=== PATIENT | female | born 1960 | race Caucasian/White ===

== ENCOUNTER 2023-09-07 20:35 | Emergency (ER) | payer MEDICARE, OTHER, SELFPAY ==
[2023-09-07 20:35] VITALS: BMI 38.9
[2023-09-07 20:42] VITALS: BP 170/146
[2023-09-07 20:58] LABS: % Basophils 0.2 % (0-2); % Eosinophils 1.6 % (0-6); % Immature Granulocytes 0.2 % (0-0.5); % Monocytes 7.4 % (1.7-9.3); % Neutrophils 53.6 % (42.2-75.2); Absolute Eosinophils 0.1 10^3/uL (0-0.7); Absolute Lymphocytes 3.3 10^3/uL (1.2-3.4); Absolute Monocytes 0.7 10^3/uL (0.1-0.6); Absolute Neutrophils 4.8 10^3/uL (1.4-6.5); Hematocrit 40.3 % (37.0-47.0); Hemoglobin 13.5 g/dL (12.0-16.0); Mean Corp Hgb Conc. 33.5 g/dL (33.0-37.0); Mean Corpuscular Hgb 29.5 pg (27.0-31.0); Mean Platelet Volume 9.9 fL (7.4-10.4); Nucleated Red Blood Cells % 0 %; Platelet Count 253 10^3/uL (130-400); Red Blood Cell Count 4.58 10^6/uL (4.20-5.40); Red Cell Dist. Width 13.4 % (11.5-14.5)
[2023-09-07 21:00] LABS: Urine Albumin Negative (Neg - Trace); Urine Bilirubin Negative (Negative); Urine Character Clear (Clear); Urine Color Yellow; Urine Glucose Negative (Negative); Urine Ketone Negative (Negative); Urine Leukocyte Trace (Negative); Urine Nitrite Negative (Negative); Urine Occult Blood Negative (Negative); Urine Urobilinogen Negative (Neg - 1+)
[2023-09-07 21:13] LABS: Urine Bacteria Few (Negative); Urine Red Blood Cell 0-2 /HPF (0-2); Urine White Cell 0-2 /HPF (0-5)
[2023-09-07 21:15] LABS: ALT (SGPT) 16 U/L (0-35); AST (SGOT) 21 U/L (14-36); Albumin 4.6 g/dl (3.5-5.0); Alkaline Phosphatase 62 U/L (38-126); Blood Urea Nitrogen 18 mg/dl (7-17); Calcium 9.8 mg/dl (8.4-10.2); Carbon Dioxide 25 mmol/L (22-30); Chloride 106 mmol/L (98-107); Glucose 99 mg/dl (70-99); Lipase 177 U/L (23-300); Sodium 135 mmol/L (135-145); Total Bilirubin 0.4 mg/dl (0.2-1.3); Total Protein 7.6 g/dl (6.3-8.2); eGFR > 60.00
--- NOTE | 2023-09-07 23:06 | ED.GENMED ---
History of Present Illness
General
Chief Complaint: Abdominal Pain
Source: patient
Exam Limitations: none
Time Seen by Provider: 09/07/23 22:49
Travel History
Have you had any contact with someone who has COVID-19?: No
Do you have any symptoms of coronavirus? Fever > 100 degrees, chills, cough, shortness of breath, sore throat, loss of taste or smell, muscle aches, or headache?: No
History of Present Illness
History of Present Illness:
This is a 62 year old female that comes in with c/o abd pain. States that this started this morning and has been on and off sine then. States that the pain in on the right lower abd. States that she was nauseated and felt a little dizzy. Denies any
fever, chills, chest pain, SOB vomiting, diarrhea, headache, urinary burning.
Past History
Past History
ED Past Medical History: HTN, Hypercholesterolemia and Other (thyroid problem); Negative Hypothyroidism
ED Past Surgical History: None
Social History
Tobacco: Non-smoker
Alcohol: None
Personal:
Living: with family
Review of Systems
Review of Systems
All Other Systems: ROS reviewed and negative except as documented in HPI and ROS
Constitutional: Reports no symptoms; Denies fever or chills
EENT: Reports no symptoms
Respiratory: Reports no symptoms; Denies cough or trouble breathing
Cardiac: Reports no symptoms; Denies chest pain
ABD/GI: Reports abdominal pain and nausea; Denies vomiting or diarrhea
: Reports no symptoms; Denies dysuria, frequency or urgency
Musculoskeletal: Reports no symptoms
Skin: Reports no symptoms
Neurological: Reports dizzy; Denies headache
Psychiatric: Reports no symptoms
Phy Exam
General Physical Exam
General Presentation: well appearing and no apparent distress
General age: appears stated age
General Skin: warm and dry
General Habitus: normal
General Mental: alert
General Hydration: appears well hydrated
ENT Exam
ENT Exam: TM's normal, pharynx normal and neck supple
Eye Exam
Eye Exam: EOMI
Cardiovascular Exam
Cardiovascular Exam: regular rate/rhythm, no edema, no murmur and normal peripheral pulses
Pulmonary Exam
Pulmonary Exam: lungs clear, no respiratory distress, no rales, chest non tender, no crackles, no rhonchi, no wheezing and no cough
Gastrointestinal Exam
Gastrointestinal Exam: normal bowel sounds, soft, no organomegaly, no pulsatile mass, non distended and tender (RLQ tenderness with palpation)
Musculoskeletal Exam
Musculoskeletal Exam: full ROM and no edema
Skin Exam
Skin Exam: normal color, warm/dry, no rash and no petechia
Psychiatric Exam
Psychiatric Exam: normal mood/affect
Course
Orders/Labs/Results
Orders:
Orders
09/07/23 20:45
IV Insert/Care/Rem.- Treatment PRN
09/07/23 20:51
Complete Blood Count/With Diff Urgent
Comprehensive Metabolic Panel Urgent
Lipase Urgent
Urinalysis Reflex To Culture Urgent
Date Specimen was Collected: 09/07/23
Time Specimen was Collected: 20:45
Urine Microscopic Reflex Cult Urgent
09/07/23 23:06
0.9% Sodium Chloride 500 ml [Nss] 500 ml IV BOLUS
09/07/23 23:12
Ondansetron Injectable [Zofran] 4 mg IV NOW STA
09/08/23 00:30
CT Abd/pelvis W Iv Cont Urgent
Reason For Exam: Right lower abd pain
Abnormal Lab Results
09/07/23
20:51
Absolute Monos (auto) 0.7 H 10^3/uL
(0.1-0.6)
BUN 18 H mg/dl
(7-17)
Leukocyte Esterase Rfl Trace A
(Negative)
Urine Bacteria (Reflex) Few A
(Negative)
09/07/23 20:51
09/07/23 20:51
Very slight Dehydration. Urine negative for infection. Lipase normal at 177,
Vital Signs
Initial and Last Documented VS:
Initial Vital Signs
Temp Pulse Resp BP Pulse Ox
98.2 F 79 19 170/146 99
09/07/23 20:42 09/07/23 20:42 09/07/23 20:42 09/07/23 20:42 09/07/23 20:42
Last Documented Vital Signs
Temp Pulse Resp BP Pulse Ox
98.2 F 79 19 143/79 99
09/07/23 20:42 09/07/23 20:42 09/07/23 20:42 09/08/23 01:00 09/08/23 01:00
MDM/Problems Addressed
Differential Diagnosis Includes:
Appendicitis, Ovarian cyst
MDM/Problems Addressed:
This is a 62 year old female that comes in with c/o right lower abd pain. States that this started today and has been on and off. States that she was nauseated and slightly dizzy.
Will check labs and get CT scan.
Back into see patient. Explained that she has degenerative changes in the spine, hips and pelvis. This is most likely causing her pain. Explained that she has bilateral renal cyst and there is a small fat filled hernia. Patient can use Tylenol or
Ibuprofen for pain. Heat or ice to help with any discomfort. Follow up with the family doctor or the risk adjustment specialist for further evaluation if she continued with pain. Return with any concerns.
Chronic conditions affecting care:
NA
Acute Exacerbation and/or Progression of Chronic Illness:
NA
*Radiology
Radiology exam reviewed: radiology read reviewed (CT- No acute intra-abdominal pathology. No findings to suggest etiology for right sided abd pain. Incidental findings. Small bilateral renal cyst. Small fat-containing paraumbilical hernia.
Degenerative changes in the spine, pelvis and hips. )
*Pulse Oximetry
Patient hypoxic: no
*EKG
Interpreted by ED Provider?: NA
Rate: EKG- N/A
*Flight Deck Officer Interpretation
Rate: Flight Deck Officer- N/A
*Critical Care Note
Total Time (30-74mins, 75-104mins- exclusive of procedures): Not Applicable
ED Attending Note
-
Portions of this chart may have been created with voice recognition software.� Occasional wrong word or��sound alike� substitutions may have occurred due to the inherent limitations of voice recognition software.
Discharge Plan
Departure
Patient Disposition: Home (Routine Discharge)
Date of Disposition: 09/08/23
Time of Disposition: 01:41
Patient with high blood pressure during this ER visit?: Yes
Condition: Good
Covid-19: Not Applicable
Discharge Problem:
Abdominal pain
Instructions: Degenerative Disc Disease (DC), Abdominal Pain, BLOOD PRESSURE
Prescriptions:
No Action
lorazepam 0.5 mg Tablet
0.5 mg PO DAILY PRN (Reason: Anxiety)
diltiazem HCl 30 mg Tablet
30 mg PO DAILY
rosuvastatin 10 mg Tablet
10 mg PO DAILY
duloxetine 20 mg Capsule,Delayed Release(Dr/Ec)
20 mg PO BID
dexlansoprazole 60 mg Capsule,Biphase Delayed Releas
60 mg PO DAILY
Referrals:
Derek Malhotra MD [Active] - As needed
Malina Beard MD [Family Provider] - Call in 1-3 days for appt
Activity Restrictions/Additional Instructions:
As discussed, your blood work is normal and your urine is negative for infection. Your CT shows that you have degenerative changes in the spine, pelvis and hips. This is most likely the cause of your right sided abd pain as the nerves from the back
wrap around to the abd. You may use Tylenol or Ibuprofen for pain. Heat or ice to help with the pain. Follow up with the family doctor for recheck. You have also been given the name of a immigration specialist if your pain continues. IF YOU HAVE ANY OTHER
CONCERNS PLEASE RETURN TO THE EMERGENCY ROOM.
Interventions
Interventions:
*Risk Screen - Suicide Last Done: 09/07/23 20:42
*General Assessment Last Done: 09/07/23 20:42
*Neglect/Abuse Screening Last Done: 09/07/23 20:42
ED- Fall Risk Assessment Last Done: 09/07/23 23:30
*ED COVID-19 Vaccine History Last Done: 09/07/23 20:42
LX-Pszlqr-Flzbdhkcfu Assessment Last Done: 09/07/23 23:30
Discharge Date and Time
Print Language: VENEZUELAN
[2023-09-07 23:12] VITALS: BP 149/75
[2023-09-07] MEDS: NSS 500 IV (23:35)
[2023-09-08 01:00] VITALS: BP 143/79
== END 2023-09-08 01:56 | disposition home or self-care (01) ==
LOC: EMR 20:35
PROVIDERS: Emergency Medicine; EMERGENCY PHYSICIAN Student in an Organized Health Care Education/Training Program; FAMILY PHYSICIAN Family Medicine
DX: R10.9 Unspecified abdominal pain (principal); I10 Essential (primary) hypertension; E78.00 Pure hypercholesterolemia, unspecified
CPT/HCPCS: 99284; 74177; 80053; 81003; 81015; 83690; 85025; Q9967

== ENCOUNTER 2024-10-12 11:12 | Emergency (ER) | payer OTHER, SELFPAY ==
[2024-10-12 11:22] VITALS: BP 141/95
[2024-10-12 11:54] LABS: % Basophils 0.2 % (0-2); % Eosinophils 1.3 % (0-6); % Immature Granulocytes 0.2 % (0-0.5); % Lymphocytes 33.4 % (20.5-51.1); % Monocytes 7.1 % (1.7-9.3); % Neutrophils 57.8 % (42.2-75.2); Absolute Eosinophils 0.1 10^3/uL (0-0.7); Absolute Lymphocytes 2.1 10^3/uL (1.2-3.4); Absolute Monocytes 0.5 10^3/uL (0.1-0.6); Absolute Neutrophils 3.7 10^3/uL (1.4-6.5); Hematocrit 42.2 % (37.0-47.0); Hemoglobin 14.2 g/dL (12.0-16.0); Mean Corp Hgb Conc. 33.6 g/dL (33.0-37.0); Mean Corpuscular Hgb 29.6 pg (27.0-31.0); Mean Corpuscular Volume 87.9 fL (81.0-99.0); Mean Platelet Volume 10.5 fL (7.4-10.4); Nucleated Red Blood Cells % 0 %; Platelet Count 268 10^3/uL (130-400); Red Cell Dist. Width 13.3 % (11.5-14.5); White Blood Cell Count 6.4 10^3/uL (4.8-10.8)
[2024-10-12 12:06] LABS: ALT (SGPT) 12 U/L (0-35); AST (SGOT) 17 U/L (14-36); Albumin 4.1 g/dl (3.5-5.0); Alkaline Phosphatase 63 U/L (38-126); Blood Urea Nitrogen 18 mg/dl (7-17); Calcium 10.1 mg/dl (8.4-10.2); Carbon Dioxide 22 mmol/L (22-30); Chloride 112 mmol/L (98-107); Glucose 95 mg/dl (70-99); Potassium 4.1 mmol/L (3.5-5.1); Sodium 142 mmol/L (135-145); Total Bilirubin 0.7 mg/dl (0.2-1.3); Total Protein 7.6 g/dl (6.3-8.2); eGFR > 60.00
[2024-10-12 12:15] LABS: Troponin I < 0.012 ng/ml
--- NOTE | 2024-10-12 14:06 | ED.GENMED ---
Addendum entered and electronically signed by Trisha Faulkner MD 10/12/24 19:55:
Dr. Mejia did a bedside formal consult on patient. Recommended we do a CTA and then feels patient can safely go home with the expectation that the patient will take 81 mg of aspirin daily, continue her rosuvastatin 10 mg daily, as well as start 21
days of Plavix. Patient is comfortable with this plan. Patient understands that she should return with any worsening neurological symptoms such as any numbness, weakness, balance issues, visual changes, difficulty swallowing or speaking.
Original Note:
History of Present Illness
<Trisha Faulkner MD - Last Filed: 10/12/24 15:22>
General
Chief Complaint: Chest Pain
Time Seen by Provider: 10/12/24 13:51
Nursing documentation reviewed up to this point in time: agreed with
<ROMELIA Wolfe - Last Filed: 10/12/24 14:53>
General
Source: patient
History of Present Illness
History of Present Illness:
Pt is a 64 yo F with a PMH of HTN, anxiety, depression, and thyroid disorder who presents to the ED c/o chest pain with radiation down the left arm and dizziness/instability x 3 days. Patient explains that the chest pain is a dull ache at her
xiphoid process, which gets worse with deep inspiration and certain movements. She says that this morning her L hand was numb, but now states that she is feeling the dull ache reach down the L arm without numbness. She admits to recent travel to the
[place] where she did a lot of swimming, but denies trauma otherwise. She says her dizziness started about the same time, she describes it as feeling as though there is something 'rattling around in her head', and she is unstable on her
feet, feeling as though the room is spinning and/or her legs may give out. She says this is worse with movements, including turning her head. She also notes that she has been on Wegovy injections x 1 year, which she typically does every Gregorio. Now,
she is 10 days out from her last injection, which she fears may be playing a role in her symptoms. Her history is notable for removal of a thyroid nodule, monitored with labs q6 months, and a TIA 5 years ago. She denies fever, N/V/D, congestion,
cough, known sick contacts, or other associated symptoms.
Past History
<Trisha Faulkner MD - Last Filed: 10/12/24 15:22>
Past History
ED Past Medical History: HTN, Hypercholesterolemia and Other (thyroid problem); Negative Hypothyroidism
ED Past Surgical History: None
Social History
Tobacco: Non-smoker
Alcohol: None
Personal:
Living: with family
Family History
Family History: Other
Review of Systems
<Trisha Faulkner MD - Last Filed: 10/12/24 15:22>
Review of Systems
Constitutional: Reports no symptoms
EENT: Reports no symptoms
Respiratory: Reports no symptoms
Cardiac: Reports chest pain
ABD/GI: Reports no symptoms
: Reports no symptoms
Musculoskeletal: Reports no symptoms
Skin: Reports no symptoms
Neurological: Reports dizzy, weakness (Patient reports feeling as if her left face is drooped intermittently) and numbness (Numbness in left hand)
Endocrine: Reports no symptoms
Hematologic/Lymphatic: Reports no symptoms
Psychiatric: Reports no symptoms
<ROMELIA Wolfe - Last Filed: 10/12/24 14:53>
Review of Systems
All Other Systems: ROS reviewed and negative except as documented in HPI and ROS
Phy Exam
<Trisha Faulkner MD - Last Filed: 10/12/24 15:22>
Physical Exam
Physical Exam:
Physical Exam
General: no apparent distress, not acutely ill. Well uncomfortable appearing
Neck: supple. no meningeal signs. normal psoterior pharynx
Heart: s1/s2 regular rate and rhythm, no murmur. equal radial pulses.
Lungs: no acute respiratory distress. clear bilaterally
Abdomen: normal bowel sounds. not tender. no CVAT
Neuro: alert and orientedx3. no focal neurological deficits. Face appears symmetric. Cranial nerves equal and symmetric bilaterally. No drift. 5 out of 5 strength in all extremities
Skin: no rash
Psychiatric: well kept. interactive and cooperative
Extremities: no edema. no calf tenderness. negative homans. good distal pulses
<ROMELIA Wolfe - Last Filed: 10/12/24 14:53>
General Physical Exam
General Presentation: well appearing and no apparent distress
General age: appears stated age
General Skin: warm and dry
General Habitus: normal
General Mental: alert
Cardiovascular Exam
Cardiovascular Exam: regular rate/rhythm
Heart Sounds: normal
Pulmonary Exam
Pulmonary Exam: lungs clear and no respiratory distress
Scores
<Trisha Faulkner MD - Last Filed: 10/12/24 15:22>
Heart Score for Chest Pain Patients
Heart Score for Chest Pain Patients: 3
Heart Score Risk: 2.5% MACE over next 6 weeks
<ROMELIA Wolfe - Last Filed: 10/12/24 14:53>
Heart Score for Chest Pain Patients
STEMI patient?: No
History: Slightly or Non-Suspicious
ECG: Normal
Age: >/= 65 years
Risk Factors: 1 or 2 Risk Factors
Troponin: </= Normal Limit
Heart Score for Chest Pain Patients: 3
Heart Score Risk: 2.5% MACE over next 6 weeks
Course
<Trisha Faulkner MD - Last Filed: 10/12/24 15:22>
Orders/Labs/Results
Orders:
Orders
10/12/24
Electrocardiogram (*1) Stat
Reason for Study: Chest Pain
Comment: DONE
10/12/24 11:30
CMP [Comprehensive Metabolic Panel] Urgent
Complete Blood Count/With Diff Urgent
TSH Urgent
Comment: ADD ON
Troponin I Urgent
10/12/24 14:31
CT Head W/o Iv Contrast Urgent
Comment:
Reason For Exam: dizziness
PT Consult [Pt Eval And Treat] Urgent
Activity Level: Out of Bed-Early Mobility
10/12/24 14:33
Add On- LAB Urgent
Tests Added?: TSH
10/12/24 15:06
D-Dimer Urgent
Troponin I Urgent
Abnormal Lab Results
10/12/24
11:30
MPV 10.5 H fL
(7.4-10.4)
Chloride 112 H mmol/L
(98-107)
BUN 18 H mg/dl
(7-17)
10/12/24 11:30
10/12/24 11:30
Vital Signs
Initial and Last Documented VS:
Initial Vital Signs
Temp Pulse Resp BP Pulse Ox
98.4 F 79 18 141/95 100
10/12/24 11:22 10/12/24 11:22 10/12/24 11:22 10/12/24 11:22 10/12/24 11:22
Last Documented Vital Signs
Temp Pulse Resp BP Pulse Ox
98.4 F 64 22 141/95 98
10/12/24 11:22 10/12/24 14:00 10/12/24 14:00 10/12/24 11:22 10/12/24 14:00
<ROMELIA Wolfe - Last Filed: 10/12/24 14:53>
Orders/Labs/Results
Orders:
Orders
10/12/24
Electrocardiogram (*1) Stat
Reason for Study: Chest Pain
Comment: DONE
10/12/24 11:30
CMP [Comprehensive Metabolic Panel] Urgent
Complete Blood Count/With Diff Urgent
TSH Urgent
Comment: ADD ON
Troponin I Urgent
10/12/24 14:31
CT Head W/o Iv Contrast Urgent
Comment:
Reason For Exam: dizziness
PT Consult [Pt Eval And Treat] Urgent
Activity Level: Out of Bed-Early Mobility
10/12/24 14:33
Add On- LAB Urgent
Tests Added?: TSH
10/12/24 15:06
D-Dimer Urgent
Troponin I Urgent
Abnormal Lab Results
10/12/24
11:30
MPV 10.5 H fL
(7.4-10.4)
Chloride 112 H mmol/L
(98-107)
BUN 18 H mg/dl
(7-17)
10/12/24 11:30
10/12/24 11:30
Vital Signs
Initial and Last Documented VS:
Initial Vital Signs
Temp Pulse Resp BP Pulse Ox
98.4 F 79 18 141/95 100
10/12/24 11:22 10/12/24 11:22 10/12/24 11:22 10/12/24 11:22 10/12/24 11:22
Last Documented Vital Signs
Temp Pulse Resp BP Pulse Ox
98.4 F 64 22 141/95 98
10/12/24 11:22 10/12/24 14:00 10/12/24 14:00 10/12/24 11:22 10/12/24 14:00
<Trisha Faulkner MD - Last Filed: 10/12/24 15:22>
MDM/Problems Addressed
Differential Diagnosis Includes:
TIA, acute coronary syndrome, PE
MDM/Problems Addressed:
Patient reports acute dizziness and chest pain, as well as numbness of left hand and possible left facial droop
Chronic conditions affecting care: HTN
Acute Exacerbation and/or Progression of Chronic Illness:
Patient is acutely hypertensive which may be causing her symptoms of left arm numbness and dizziness
Acute Exacerbation and/or Progression of Chronic Illness: HTN
<Trisha Faulkner MD - Last Filed: 10/12/24 15:22>
*Pulse Oximetry
Patient hypoxic: no
*EKG
Interpreted by ED Provider?: Yes
Interpretation: normal
Comparison EKG: no comparison EKG present
Rate: normal
Rhythm: sinus
[place]: normal axis
Interval: normal interval
QRS Pattern: normal QRS
Ischemia: no ischemia
*Grounds/Maintenance Specialist Interpretation
Rate: normal
Interpretation: normal
Rhythm: sinus
<ROMELIA Wolfe - Last Filed: 10/12/24 14:53>
*Critical Care Note
Total Time (30-74mins, 75-104mins- exclusive of procedures): Not Applicable
ED Attending Note
<Trisha Faulkner MD - Last Filed: 10/12/24 15:22>
-
Portions of this chart may have been created with voice recognition software.� Occasional wrong word or��sound alike� substitutions may have occurred due to the inherent limitations of voice recognition software.
Discharge Plan
Departure
Prescriptions:
No Action
lorazepam 0.5 mg Tablet
0.5 mg PO DAILY PRN (Reason: Anxiety)
diltiazem HCl 30 mg Tablet
30 mg PO DAILY
rosuvastatin 10 mg Tablet
10 mg PO DAILY
duloxetine 20 mg Capsule,Delayed Release(Dr/Ec)
20 mg PO BID
dexlansoprazole 60 mg Capsule,Biphase Delayed Releas
60 mg PO DAILY
Interventions
Interventions:
*Risk Screen - Suicide Last Done: 10/12/24 11:22
*General Assessment Last Done: 10/12/24 11:22
*Neglect/Abuse Screening Last Done: 10/12/24 11:22
*ED- Fall Risk Assessment Last Done: 10/12/24 11:22
*ED COVID-19 Vaccine History Last Done: 10/12/24 11:22
ED- Cardiac Assessment Last Done: 10/12/24 13:26
Discharge Date and Time
Print Language: ICELANDIC
[2024-10-12 15:37] LABS: Troponin I < 0.012 ng/ml
[2024-10-12 15:43] LABS: TSH 1.39 uIU/ml (0.47-4.68)
[2024-10-12] MEDS: LOW STRENGTH ASPIRIN 324 MG PO (16:11)
[2024-10-12] MEDS: PLAVIX 300 MG PO (16:12)
[2024-10-12 16:18] LABS: D-Dimer 0.38 ug/mlFEU (0.00-0.50)
[2024-10-12 18:30] VITALS: BP 154/87
--- NOTE | 2024-10-12 18:51 | CON.NEURO ---
Neuro Assessment/Plan
Assessment
Head CT images reviewed with patient, i believe stroke seen right posterior internal capsule/lentiform, consistent with the clinical picture; spoke with radiologist could be Virchow Davis space or old infarct
CTA head/neck imgs rev'd normal
Lacunar stroke - patient would prefer to go home
Plan
Loaded ASA 324 and Plavix 300 in ED
Start ASA 81, Plavix x21 days
patient poorly tolerated Lipitor 40 and Rosuvastatin 10 but willing to try to take rosuvastatin 10 again but no higher
she is already scheduled to see her client technical specialist on Wednesday; I advised afib screening though patient hesitant
no need for MRI as head CT already showing stroke
Consultation
Order
Date of Consultation: 10/12/24
Requesting Provider: Trisha Faulkner
Reason for Consult: stroke
Subjective/Objective
Subjective Data
Date of Service: October 12, 2024
from h&p:
Pt is a 64 yo F with a PMH of HTN, anxiety, depression, and thyroid disorder who presents to the ED c/o chest pain with radiation down the left arm and dizziness/instability x 3 days. Patient explains that the chest pain is a dull ache at her
xiphoid process, which gets worse with deep inspiration and certain movements. She says that this morning her L hand was numb, but now states that she is feeling the dull ache reach down the L arm without numbness. She admits to recent travel to the
[place] where she did a lot of swimming, but denies trauma otherwise. She says her dizziness started about the same time, she describes it as feeling as though there is something 'rattling around in her head', and she is unstable on her
feet, feeling as though the room is spinning and/or her legs may give out. She says this is worse with movements, including turning her head. She also notes that she has been on Wegovy injections x 1 year, which she typically does every Wednesday. Now,
she is 10 days out from her last injection, which she fears may be playing a role in her symptoms. Her history is notable for removal of a thyroid nodule, monitored with labs q6 months, and a TIA 5 years ago. She denies fever, N/V/D, congestion,
cough, known sick contacts, or other associated symptoms.
Objective Data
Vital Signs
Temp Pulse Resp BP Pulse Ox
36.9 C 64 20 141/95 98
10/12/24 14:00 10/12/24 17:15 10/12/24 17:15 10/12/24 11:22 10/12/24 14:45
Lab Results
10/12/24 11:30
10/12/24 11:30
Sodium 142 mmol/L (135-145) 10/12/24 11:30
Potassium 4.1 mmol/L (3.5-5.1) 10/12/24 11:30
BUN 18 mg/dl (7-17) H 10/12/24 11:30
Glucose 95 mg/dl (70-99) 10/12/24 11:30
Calcium 10.1 mg/dl (8.4-10.2) 10/12/24 11:30
Patient Allergies
Penicillins Allergy (Verified 10/12/24 11:22)
Rash
Physical Exam
-
AAOx3, speech clear, language intact
VFF, EOMI, Left nasolabial flattening
LUE/LE 5-/5, Right side full strength
sensation decreased temp/vibration LUE/LE
DTR 1+ symmetric
Medications
-
Home Medications
�Medication �Instructions �Recorded
dexlansoprazole 60 mg 60 mg PO DAILY 09/07/23
capsule,biphase delayed release
diltiazem HCl 30 mg tablet 30 mg PO DAILY 09/07/23
duloxetine 20 mg capsule,delayed 20 mg PO BID 09/07/23
release
lorazepam 0.5 mg tablet 0.5 mg PO DAILY PRN Anxiety 09/07/23
rosuvastatin 10 mg tablet 10 mg PO DAILY 09/07/23
[2024-10-12 19:00] VITALS: BP 147/69
== END 2024-10-12 19:29 | disposition home or self-care (01) ==
LOC: EMR 11:12
PROVIDERS: Emergency Medicine; EMERGENCY PHYSICIAN Emergency Medicine; FAMILY PHYSICIAN Family Medicine
DX: R42 Dizziness and giddiness (principal); R07.89 Other chest pain; G45.9 Transient cerebral ischemic attack, unspecified; I10 Essential (primary) hypertension; F41.8 Other specified anxiety disorders; E07.9 Disorder of thyroid, unspecified; E78.00 Pure hypercholesterolemia, unspecified; Z88.0 Allergy status to penicillin
CPT/HCPCS: 99284; 70450; 70496; 70498; 80053; 84443; 84484; 85025; 85379; 93005; Q9967